=== PATIENT | male | born 1990 | race Caucasian/White ===

== ENCOUNTER 2016-05-24 18:34 | Emergency (ER) | payer SELFPAY ==
[~2016-05-24] VITALS: Ht 177.8 cm; Wt 77.3 kg
[2016-05-24 18:47] VITALS: BP 129/58
== END 2016-05-24 20:54 | disposition left against medical advice (07) ==
LOC: EMS 18:36
DX: T14.8 Other injury of unspecified body region (principal); Z53.21 Procedure and treatment not carried out due to patient leaving prior to being seen by health care provider; W54.0XXA Bitten by dog, initial encounter; Y93.89 Activity, other specified; Y92.89 Other specified places as the place of occurrence of the external cause; Y99.8 Other external cause status

== ENCOUNTER 2016-05-24 21:04 | Emergency (ER) | payer SELFPAY ==
[~2016-05-24] VITALS: Ht 177.8 cm; Wt 77.3 kg
[2016-05-24] MEDS ORDERED: BACITRACIN 0.9 GM PACKET OINTMENT TP ONE (22:30)
[2016-05-24] MEDS ORDERED: PERTUSS(ACELL),DIPH,TET VAC/PF 0.5 ML VIAL IM ONE (22:30)
[2016-05-24] MEDS ORDERED: OxyCODONE HCL/ACETAMINOPHEN 5-325 MG TABLET PO ONE (22:30)
[2016-05-24] MEDS ORDERED: ONDANSETRON HCL 4 MG TABLET PO ONE (22:30)
[2016-05-24] MEDS ORDERED: LIDOCAINE HCL/PF 1% 2 ML VIAL IM ONE (22:30)
[2016-05-24] MEDS ORDERED: CefTRIAXone SODIUM 1 GM/VIAL IM ONE (22:30)
[2016-05-24 22:35] VITALS: BP 124/65
== END 2016-05-24 23:32 | disposition home or self-care (01) ==
LOC: EMS 21:06
DX: S51.852A Open bite of left forearm, initial encounter (principal); L03.114 Cellulitis of left upper limb; F12.90 Cannabis use, unspecified, uncomplicated; W54.0XXA Bitten by dog, initial encounter; Y93.89 Activity, other specified; Y92.89 Other specified places as the place of occurrence of the external cause; Y99.8 Other external cause status
CPT/HCPCS: 73090; 90471; 90715; 96372; 99284; J0696; J3490; Q0162